=== PATIENT | female | born 1930 | race Caucasian/White ===

== ENCOUNTER 2017-07-21 15:56 | Outpatient (CLI) | payer OTHER ==
[~2017-07-21] VITALS: Ht 154.9 cm; Wt 57.3 kg
[2017-07-21 15:53] VITALS: BP 190/86; PULSE 78; RESP 18; Ht 154.9 cm; Wt 57.3 kg
[2017-07-21] MEDS ORDERED: PANT40TA4 PO (16:06)
[2017-07-21] MEDS ORDERED: DILT360T9 PO (16:06)
[2017-07-21] MEDS ORDERED: ONDA4TAB8 PO (16:06)
[2017-07-21] MEDS ORDERED: LOSA100T7 PO (16:06)
[2017-07-21] MEDS ORDERED: TRAZ50TA18 PO (16:06)
--- NOTE | 2017-07-21 21:24 | CONS ---
DATE OF CONSULTATION: 07/21/2017 [facility] OUTPATIENT CONSULTATION NOTE PLACE OF SERVICE: [facility] at [facility]. REFERRING PHYSICIAN: Savanna Hatfield MD Dear Dr. Hatfield: Thank you very much for allowing us to continue to participate in the care of this very pleasant lady and her wonderful family. REASON FOR CONSULTATION: Abdominal pain. HISTORY OF PRESENT ILLNESS: The patient is a very pleasant 86-year-old lady well known to me from summer, when she initially presented with colon cancer, status post laparoscopic radical right hemicolectomy at [facility] on 04/12/2015, with final pathology showing poorly differentiated, 8 cm adenocarcinoma of right colon which was removed with negative margins and 0 out of 62 lymph nodes positive for a TNM stage PT3 PN0 PM0, who has done fairly well since the operation and presented with a few month history of what she believes to be inflammatory bowel syndrome type symptoms with alternating constipation and diarrhea, with no blood in the stool or urine, no changes in appetite, no changes in weight and no other associated symptoms with food. She has had workup that included imaging studies as follows : Abdominal ultrasound done on 04/30/2017 showing unremarkable examination of the abdomen and retroperitoneum. This was followed by an abdominal and pelvic CT without contrast on 06/30/2017 that demonstrated mild fluid-filled distal small bowel which may represent an ileus, otherwise no acute pathology in the abdomen and pelvis. Evidence of previous right hemicolectomy and hysterectomy noted, and stool-filled large bowel as well. She also had 2 hospitalizations at [facility] per her report. One of them was from abdominal distention, followed by a significant amount of diarrhea. Second visit was because of [place] her 's gravesite. She does not have any other major complaints today. COMORBIDITIES: 1. History of colon cancer as above, with final pathology PT3 PN0 PM0 at [facility] on 04/12/2015 after a laparoscopic right hemicolectomy for an 8 cm mass. 2. Hypertension. 3. Status post left hip repair in year 1999. 4. Sciatica type pain. 5. Anemia. 6. Hysterectomy in 1964. ALLERGIES 1. PENICILLIN. 2. CODEINE, WITH PENICILLIN CAUSING SEVERE SWELLING, AND UNKNOWN REACTION TO CODEINE . SOCIAL HISTORY: The patient is a former smoker and used alcohol in the past, but not currently. There is no intravenous drug use noted. FAMILY HISTORY: History of CVA with patient's father dying at age 56. Her mother from old age at 96. REVIEW OF SYSTEMS: Other than the above-mentioned, there are no other pertinent positives or pertinent negatives in a complete 14-point review of systems. PHYSICAL EXAMINATION: GENERAL: Patient appears to be a very pleasant lady of non- descent, appearing stated age, sitting in a chair comfortably and in no acute distress. Her BMI is 23.9. VITAL SIGNS: Normal except for blood pressure of 190/86. HEENT: Head is normocephalic and atraumatic. Her extraocular muscles and hearing are grossly intact bilaterally and symmetrically. Her sclerae are nonicteric. Her oral cavity is clear, and her oral mucosa appears to be pink and moist. She is wearing upper and lower dentures. NECK: Supple. There is no lymphadenopathy or JVD. There is no submental, submandibular or supraclavicular lymphadenopathy. CHEST: Rises symmetrically with each breath, and she is breathing comfortably. There are no audible wheezes, rales or rhonchi on the gross exam. Her pulses are palpable in her neck bilaterally and symmetrically on the carotids. HEART: Her pulse is also palpable on the right wrist. Lower extremities contain no pitting edema around the ankles bilaterally and symmetrically. ABDOMEN: Soft, nontender and nondistended. Well-healed laparoscopic incisions are present without any evidence of erythema, edema, discharge or hernia. There are no peritoneal signs or guarding. There are no palpable masses or evidence of ascites, caput medusae, engorged subcutaneous veins or other abnormalities. SKIN: Appears to be pink and feels warm to touch. NEUROLOGIC: She is awake, alert and follows commands appropriately. LABORATORY DATA: Last labs available are from September 2016 with white blood cell count 8.2, hemoglobin 14.2, platelets 248, creatinine 1.07, CO2 28, albumin 4.3, total bilirubin 0.4, AST 23, ALT 15, alkaline phosphatase 75, triglycerides 179. IMAGING: The pertinent images were reviewed above. Note that I personally reviewed these images and I agree in general with their overall reported findings. ASSESSMENT AND PLAN: A very pleasant 86-year-old lady with a history of colon cancer, status post laparoscopic right hemicolectomy at [facility] in March of 2015, with a localized, albeit large ascending colon malignancy with no lymph node involvement and fairly unremarkable recovery since then, presenting with abdominal symptoms that are fairly consistent with inflammatory bowel syndrome, although other etiologies still do apply including recurrent colon cancer. As best as I can gather, the patient has not had any further followup with oncology or with gastroenterology. Given the possibility of irritable bowel syndrome and the history of colon cancer, it would be very beneficial for the patient to have these conversations and to decide whether further endoscopy is indicated. In my opinion, the patient is at enough risk that repeat colonoscopy plus or minus upper endoscopy would be advised at this time. Also, tumor marker checks would be helpful in further management. From a gallbladder standpoint, I do not see any obvious issues with it at this time, and I do not recommend surgical intervention for it. I also do not see any obvious other surgical issues that are presenting themselves on the available images or workup. I explained all of this to the patient (no family in the room) and answered all questions. Patient appeared to understand and agreed with plans. With above assessments, I have recommended the followin. Follow up with gastroenterology and consideration for upper and lower endoscopy. 2. Follow with oncology, although this should be done after she has had colonoscopy to evaluate for malignancy and if no malignancy is present, there would be no further role for oncologic input. 3. Follow up with you, Dr. Hatfield, for primary care/internal medicine interventions. 4. Follow up with us if there are findings in the gastroenterology workup that would require surgical intervention. Thank you again for allowing us to continue to be present and participate in the care of this very pleasant lady and her wonderful family. If there are any questions, please feel free to contact me at [phone]. NATURE OF PRESENTING PROBLEM: Moderate risk. COMPLEXITY OF DECISION MAKING: Moderate complexity. Dictated By: ТАТЬЯНА HAGEN/ION Conf#: [id number] DID#: [id number] CC: Savanna Hatfield;*EndCC* MTDD
== END 2017-07-21 17:00 | disposition home or self-care (01) ==
LOC: HPC 15:56
PROVIDERS: ATTEND Transplant Surgery
DX: R10.9 Unspecified abdominal pain (principal); I10 Essential (primary) hypertension; D64.9 Anemia, unspecified; M54.30 Sciatica, unspecified side; Z90.710 Acquired absence of both cervix and uterus; Z88.0 Allergy status to penicillin; Z85.038 Personal history of other malignant neoplasm of large intestine; Z87.891 Personal history of nicotine dependence
CPT/HCPCS: G0463